=== PATIENT | female | born 1945 | race Caucasian/White ===

== ENCOUNTER 2016-07-21 17:18 | Outpatient (CLI) | payer MEDICARE, OTHER | END 2016-07-21 17:19 | disposition home or self-care (01) | DX: M16.11 Unilateral primary osteoarthritis, right hip (principal); M19.91 Primary osteoarthritis, unspecified site ==

== ENCOUNTER 2018-07-30 14:14 | Outpatient (CLI) | payer MEDICARE, OTHER ==
--- NOTE | 2018-07-30 14:53 | XRAY Report ---
Reason: UNSPEC INJURY OF RT WRIST,HAND FINGERS Procedure Date: 07/30/2018 Accession Number: [id number] / [id number] Procedure: XR - Wrist 4 View RT CPT Code: FULL RESULT: EXAMS: RIGHT HAND AND WRIST RADIOGRAPHY EXAM DATE: 07/30/2018 02:21 PM. CLINICAL HISTORY: Unspecified injury of right wrist, hand, fingers. COMPARISON: WRIST 4 VIEW RT 07/30/2018 2:20 PM. TECHNIQUE: 3 views of the right hand and 4 views of the right wrist. FINDINGS: Bones: The bones are qualitatively osteopenic; this limits evaluation for underlying fractures or masses. There is an impacted distal radial fracture without significant angulation. Joints: Degenerative changes, osteoarthrosis pattern. No acute subluxation. Soft Tissues: Normal. No soft tissue swelling. IMPRESSION: Impacted distal radial fracture. Osteopenia. [facility] The call report notification system was initiated by Dr. Bo Lowe at 02:51 PM on 07/30/2018. ADDENDUM: 07/30/18 14:58 The above call report findings were discussed with the nurse of Connie Garduno by Dr. Bo Lowe at 02:58 PM on 07/30/2018.
--- NOTE | 2018-07-30 14:53 | XRAY Report ---
Reason: UNSPEC INJURY OF RT WRIST,HAND FINGERS Procedure Date: 07/30/2018 Accession Number: [id number] / [id number] Procedure: XR - Hand 3 View RT CPT Code: FULL RESULT: EXAMS: RIGHT HAND AND WRIST RADIOGRAPHY EXAM DATE: 07/30/2018 02:21 PM. CLINICAL HISTORY: Unspecified injury of right wrist, hand, fingers. COMPARISON: WRIST 4 VIEW RT 07/30/2018 2:20 PM. TECHNIQUE: 3 views of the right hand and 4 views of the right wrist. FINDINGS: Bones: The bones are qualitatively osteopenic; this limits evaluation for underlying fractures or masses. There is an impacted distal radial fracture without significant angulation. Joints: Degenerative changes, osteoarthrosis pattern. No acute subluxation. Soft Tissues: Normal. No soft tissue swelling. IMPRESSION: Impacted distal radial fracture. Osteopenia. [facility] The call report notification system was initiated by Dr. Bo Lowe at 02:51 PM on 07/30/2018. ADDENDUM: 07/30/18 14:58 The above call report findings were discussed with the nurse of Connie Garduno by Dr. Bo Lowe at 02:58 PM on 07/30/2018.
== END 2018-07-30 14:15 | disposition home or self-care (01) ==
LOC: DI 14:14
PROVIDERS: ATTEND Nurse Practitioner Family
DX: S52.501A Unspecified fracture of the lower end of right radius, initial encounter for closed fracture (principal); M19.031 Primary osteoarthritis, right wrist; M85.841 Other specified disorders of bone density and structure, right hand

== ENCOUNTER 2023-02-16 14:34 | Outpatient (CLI) | payer MEDICARE, OTHER | END 2023-02-16 14:35 | disposition short-term general hospital (02) | LOC: EMS 14:34 | DX: R40.20 Unspecified coma (principal); R51.9 Headache, unspecified; R06.89 Other abnormalities of breathing; R11.10 Vomiting, unspecified; R53.1 Weakness | CPT/HCPCS: A0425; A0433 ==